=== PATIENT | male | born 1995 | race African-American/Black ===

== ENCOUNTER → 2024-08-18 11:05 | Outpatient (CLI) | payer OTHER, SELFPAY ==
--- NOTE | 2024-08-18 11:09 | DI.MRI.S_ITS ---
PROCEDURE: MR KNEE RT WO CON INDICATIONS: Chondromalacia patellae, unspecified knee TECHNIQUE: Noncontrast sagittal PD fast spin echo and T2 fast spin echo with fat saturation, sagittal 3-D FLASH with fat saturation; coronal T1 spin echo and PD fast spin echo with fat saturation, and axial PD fast spin echo with fat saturation through the knee. COMPARISON: None. FINDINGS: Image quality: Excellent. Anterior cruciate ligament: There is chronic appearing full-thickness tearing of the mid to proximal anterior cruciate ligament. Posterior cruciate ligament: Intact. Medial collateral ligament: Low-grade sprain of the proximal medial collateral ligament Lateral collateral ligament: Intact. Medial meniscus: Complex tearing of the medial meniscus with components extending to the tibial and femoral articular surfaces at the posterior horn. At the meniscal body, there is an inferiorly displaced flap component with meniscal tissue extending into the medial tibial gutter. Lateral meniscus: Intact. Medial and lateral tendons: The semimembranosus tendon insertions appear intact. Visualized portions of the pes anserinus tendons appear normal. The popliteus tendon is intact. Iliotibial band appears normal. Anterior structures: Thickening of the patellar tendon is compatible with tendinosis. Small ossifications adjacent to the inferior pole the patella may be the sequela of prior Iymvozm-Ymcnat-Wratgdiy disease. Distal quadriceps tendon is intact. The quadriceps and patellar tendons appear intact. Mild lateral patellar subluxation. No femoral trochlear dysplasia or ventral trochlear prominence. Mild edema at the superolateral aspect of the infrapatellar fat pad. Bones: No bone marrow contusions or recent fractures. Medial femorotibial cartilage: High-grade versus full-thickness cartilage loss at the central weight-bearing portion of the medial femoral condyle and adjacent medial tibial plateau with mild subchondral edema and small marginal osteophytes Lateral femorotibial cartilage: Mild partial-thickness cartilage irregularity at the posterior weight-bearing portion of the lateral tibial plateau and the posterior weight-bearing portion of the lateral femoral condyle. Patellofemoral cartilage: Full-thickness cartilage loss and adjacent cartilage delamination at the lateral facet of the patella inferiorly measuring approximately 9 x 7 mm. Soft tissues: Moderate joint effusion. Small medial popliteal cyst with mild internal septations. Visualized musculature is normal in bulk. IMPRESSION: 1. Remote prior full-thickness tearing of the mid to proximal anterior cruciate ligament. 2. Chronic grade 1 sprain of the proximal medial collateral ligament. 3. Complex tearing of the medial meniscus with horizontal oblique components at the posterior horn extending to the femoral and tibial articular surfaces as well as an inferiorly displaced flap component at the meniscal body with tissue extending into the medial tibial gutter. 4. Grade 3-4 chondromalacia in the weight-bearing portion of the medial femorotibial compartment with mild subchondral edema. Grade 2 chondromalacia is seen in the lateral femorotibial compartment. There is focal full-thickness cartilage loss and cartilage delamination in the patellofemoral compartment at the lateral patellar facet 5. Moderate patellar tendinosis. Mild lateral patellar subluxation. Mild edema at the superolateral aspect of the infrapatellar fat pad, which can be seen in the setting of lateral femoral condyle-patellar tendon friction syndrome. 6. Moderate joint effusion. Small medial popliteal cyst. Approved by: Rajeev Cameron M.D. on 08/20/2024 at 9:28
== END ==
DX: S83.231A Complex tear of medial meniscus, current injury, right knee, initial encounter (principal); S83.511A Sprain of anterior cruciate ligament of right knee, initial encounter; S83.411A Sprain of medial collateral ligament of right knee, initial encounter; S83.011A Lateral subluxation of right patella, initial encounter; M25.461 Effusion, right knee; M71.21 Synovial cyst of popliteal space [Baker], right knee; M94.261 Chondromalacia, right knee
CPT/HCPCS: 73721